=== PATIENT | male | born 1990 | race Hispanic/Latino ===

== ENCOUNTER 2016-09-15 16:23 | Emergency (ER) | payer SELFPAY ==
[2016-09-15 16:44] VITALS: BP 135/79
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
== END 2016-09-15 21:20 | disposition home or self-care (01) ==
LOC: ED 16:23
DX: M54.5 Low back pain (principal); F17.200 Nicotine dependence, unspecified, uncomplicated; Z88.6 Allergy status to analgesic agent
CPT/HCPCS: 99282